=== PATIENT | male | born 1990 | race African-American/Black ===

== ENCOUNTER 2019-07-09 19:17 | Emergency (ER) | payer SELFPAY ==
[~2019-07-09] VITALS: Ht 175.3 cm; Wt 61.2 kg
[2019-07-09 19:28] VITALS: BP 101/57
[2019-07-09 19:45] LABS: BILIRUBIN,URINE NEGATIVE (NEG); CLARITY,URINE CLEAR; COLOR,URINE YELLOW; NITRITE,URINE NEGATIVE (NEG); PH,URINE 5.5; PROTEIN,URINE NEGATIVE (NEG-TRACE); UROBILINOGEN,URINE 0.2 mg/dL (0.2 mg/dL)
[2019-07-09 19:55] LABS: BACTERIA,URINE MODERATE /HPF (0-FEW); SQUAMOUS EPITHELIAL CELL,UR FEW /LPF; WBC,URINE TNTC /HPF (0-4)
[2019-07-09] MEDS ORDERED: AZITHROMYCIN 250 MG TABLET. PO ONE (20:15)
[2019-07-09] MEDS ORDERED: cefTRIAXone IM 250 MG VIAL IM ONE (20:15)
[2019-07-09] MEDS ORDERED: CEPH-264 PO (20:17)
--- NOTE | 2019-07-09 20:17 | PHYS DOC ---
Past Medical History Past Medical History: No Pertinent History Past Surgical History: No Surgical History Alcohol Use: None Drug Use: Marijuana Adult General Chief Complaint Chief Complaint: SEXUALLY TRANSMITTED DISEASE HPI HPI Patient is a 28 year old male who presents with had intercourse with a female that was positive for chlamydia. Patient denies any symptoms. Review of Systems Review of Systems : Exposure to STD. Denies dysuria or hematuria [] All other systems were reviewed and found to be within normal limits, except as documented in this note. Current Medications Current Medications Current Medications Medications (Trade) Dose Ordered Sig/Chris Start Time Stop Time Status Last Admin Dose Admin Azithromycin (Zithromax) 1,000 mg 1X ONCE 07/09/19 20:15 07/09/19 20:16 DC 07/09/19 20:15 1,000 MG Ceftriaxone Sodium (Rocephin Im) 250 mg 1X ONCE 07/09/19 20:15 07/09/19 20:16 DC 07/09/19 20:15 250 MG Allergies Allergies Allergies Coded Allergies Type Severity Reaction Last Updated Verified No Known Drug Allergies 07/09/19 No Physical Exam Physical Exam Constitutional: Well developed, well nourished, no acute distress, non-toxic appearance. [] Abdomen: Bowel sounds normal, soft, no tenderness, no masses, no pulsatile masses. [] Skin: Warm, dry, no erythema, no rash. [] Neurologic: Alert and oriented X 3, normal motor function, normal sensory function, no focal deficits noted. [] Psychologic: Affect normal, judgement normal, mood normal. Normal Physical exam[] Current Patient Data Vital Signs Vital Signs Date Time Temp Pulse Resp B/P (MAP) Pulse Ox O2 Delivery O2 Flow Rate FiO2 07/09/19 19:28 98.2 74 20 101/57 (72) 96 Room Air 98.2 Lab Values Laboratory Tests Test 07/09/19 19:23 Urine Collection Type Unknown Urine Color Yellow Urine Clarity Clear Urine pH 5.5 Urine Specific [place] >=1.030 Urine Protein Negative mg/dL (NEG-TRACE) Urine Glucose (UA) Negative mg/dL (NEG) Urine Ketones (Stick) Trace mg/dL (NEG) Urine Blood Negative (NEG) Urine Nitrite Negative (NEG) Urine Bilirubin Negative (NEG) Urine Urobilinogen Dipstick 0.2 mg/dL (0.2 mg/dL) Urine Leukocyte Esterase Moderate (NEG) Urine RBC 11-20 /HPF (0-2) Urine WBC Tntc /HPF (0-4) Urine Squamous Epithelial Cells Few /LPF Urine Bacteria Moderate /HPF (0-FEW) Urine Mucus Slight /LPF EKG EKG [] Radiology/Procedures Radiology/Procedures [] Course & Med Decision Making Course & Med Decision Making Abdomen soft and nontender. Patient denies dysuria symptoms, penile discharge, abdominal pain, nausea, vomiting, fever, back pain. There is no penile discharge or lesions to the penis seen. Patient denies any testicular pain. Patient is treated for sexual transmitted diseases. I sent off a urine for sexual transmitted diseases. Patient is reminded that he will be called in 48 hours only if he comes back positive. Patient is positive for urinary tract infection. Dragon Disclaimer Dragon Disclaimer This electronic medical record was generated, in whole or in part, using a voice recognition dictation system. Departure Departure Impression: Primary Impression: UTI (urinary tract infection) Additional Impression: Sexually transmissible disease Disposition: HOME, SELF-CARE Condition: STABLE Referrals: NO PCP (PCP) Patient Instructions: Sexually Transmitted Disease, Urinary Tract Infection Additional Instructions: Follow-up with primary care if needed. You will call you in 48 hours if you're results come back positive. Take medications with meals and as prescribed. Scripts Cephalexin (KEFLEX) 500 Mg Capsule 1 CAP PO BID for 7 Days, #14 CAP 0 Refills Prov: ELLE IBRAHIM APRN 07/09/19 Problem Qualifiers Primary Impression: UTI (urinary tract infection) Urinary tract infection type: site unspecified Hematuria presence: without hematuria Qualified Codes: N39.0 - Urinary tract infection, site not specified ELLE IBRAHIM BUSINESS DEAN Jul 09, 2019 20:17
== END 2019-07-09 20:42 | disposition home or self-care (01) ==
LOC: ER 19:17
DX: A64 Unspecified sexually transmitted disease (principal); N39.0 Urinary tract infection, site not specified
CPT/HCPCS: 81001; 87086; 87491; 87591; 96372; 99284; J0696; Q0144

== ENCOUNTER 2019-11-25 17:33 | Emergency (ER) | payer SELFPAY ==
[~2019-11-25] VITALS: Ht 175.3 cm; Wt 59.0 kg
[~2019-11-25 17:33] MED LIST: CEPH-264 PO
[2019-11-25 17:54] VITALS: BP 115/63
[2019-11-25] MEDS ORDERED: metroNIDAZOLE 500 MG TABLET PO ONE (18:00)
[2019-11-25] MEDS ORDERED: AZITHROMYCIN 250 MG TABLET. PO ONE (18:00)
[2019-11-25] MEDS ORDERED: cefTRIAXone IM 250 MG VIAL IM ONE (18:00)
[2019-11-25 18:07] LABS: BILIRUBIN,URINE NEGATIVE (NEG); CLARITY,URINE CLEAR; COLOR,URINE YELLOW; NITRITE,URINE NEGATIVE (NEG); PH,URINE 5.5; PROTEIN,URINE NEGATIVE (NEG-TRACE); UROBILINOGEN,URINE 0.2 mg/dL (0.2 mg/dL)
[2019-11-25 18:26] LABS: BACTERIA,URINE FEW /HPF (0-FEW); RBC,URINE RARE /HPF (0-2); SQUAMOUS EPITHELIAL CELL,UR MOD /LPF; WBC,URINE 20-40 /HPF (0-4)
--- NOTE | 2019-11-25 19:18 | PHYS DOC ---
Past Medical History Past Medical History: No Pertinent History Past Surgical History: No Surgical History Smoking Status: Current Every Day Smoker Alcohol Use: None Drug Use: Marijuana Adult General Chief Complaint Chief Complaint: SEXUALLY TRANSMITTED DISEASE HPI HPI Patient is a 29 year old AA male, accompanied by his significant other, who presents to the emergency department for treatment of trichomonas. Patient states that his girlfriend tested positive for trichomonas recently and that he has had pain with urination. He denies any abnormal discharge from his penis. Patient also denies any fever, cough, shortness of breath, back pain, hematuria, abnormal penile discharge, nausea, vomiting, diarrhea, or abdominal pain. He currently denies any pain. Review of Systems Review of Systems Complete ROS is negative unless otherwise noted in HPI. Current Medications Current Medications Current Medications Medications (Trade) Dose Ordered Sig/Chris Start Time Stop Time Status Last Admin Dose Admin Azithromycin (Zithromax) 1,000 mg 1X ONCE 11/25/19 18:00 11/25/19 18:06 DC 11/25/19 18:10 1,000 MG Ceftriaxone Sodium (Rocephin Im) 250 mg 1X ONCE 11/25/19 18:00 11/25/19 18:06 DC 11/25/19 18:11 250 MG Metronidazole (Flagyl) 2,000 mg 1X ONCE 11/25/19 18:00 11/25/19 18:06 DC 11/25/19 18:10 2,000 MG Allergies Allergies Allergies Coded Allergies Type Severity Reaction Last Updated Verified No Known Drug Allergies 07/09/19 No Physical Exam Physical Exam See Above Constitutional: Well developed, well nourished, no acute distress, non-toxic appearance. [] HENT: Normocephalic, atraumatic, bilateral external ears normal, nose normal. [] Eyes: PERRLA, EOMI, conjunctiva normal, no discharge. [] Neck: Normal range of motion, no stridor. [] Cardiovascular:Heart rate regular rhythm Lungs & Thorax: Respirations even and unlabored, no retractions, no respiratory distress Skin: Warm, dry, no erythema, no rash. [] Extremities: No cyanosis, ROM intact, no edema. [] Neurologic: Alert and oriented X 3, no focal deficits noted. [] Psychologic: Affect normal, judgement normal, mood normal. [] Current Patient Data Vital Signs Vital Signs Date Time Temp Pulse Resp B/P (MAP) Pulse Ox O2 Delivery O2 Flow Rate FiO2 11/25/19 17:54 98.0 72 16 115/63 (80) 97 Room Air 98.0 Lab Values Laboratory Tests Test 11/25/19 17:45 Urine Collection Type Unknown Urine Color Yellow Urine Clarity Clear Urine pH 5.5 Urine Specific [place] 1.025 Urine Protein Negative mg/dL (NEG-TRACE) Urine Glucose (UA) Negative mg/dL (NEG) Urine Ketones (Stick) Negative mg/dL (NEG) Urine Blood Negative (NEG) Urine Nitrite Negative (NEG) Urine Bilirubin Negative (NEG) Urine Urobilinogen Dipstick 0.2 mg/dL (0.2 mg/dL) Urine Leukocyte Esterase Moderate (NEG) Urine RBC Rare /HPF (0-2) Urine WBC 20-40 /HPF (0-4) Urine Squamous Epithelial Cells Mod /LPF Urine Bacteria Few /HPF (0-FEW) Urine Mucus Marked /LPF EKG EKG [] Radiology/Procedures Radiology/Procedures [] Course & Med Decision Making Course & Med Decision Making Pertinent Labs and Imaging studies reviewed. (See chart for details) Patient is a 29-year-old male who presented with concerns of a sexually transmitted infection. He was treated for trichomonas, and suspected gonorrhea and chlamydia. Patient was given 2 g of p.o. Flagyl, 1 g of p.o. Zithromax, and 250 mg IM Rocephin. Patient was encouraged to avoid intercourse for at least 1 week following treatment. Follow-up with the local health department for more comprehensive STD testing. [] Dragon Disclaimer Dragon Disclaimer This electronic medical record was generated, in whole or in part, using a voice recognition dictation system. Departure Departure Impression: Primary Impression: Contact with and (suspected) exposure to infections with a predominantly sexual mode of transmission Disposition: HOME, SELF-CARE Condition: STABLE Referrals: NO PCP (PCP) Patient Instructions: Sexually Transmitted Disease, [id number] Additional Instructions: Recommend that you go to your local health department for comprehensive sexually transmitted disease testing. You have been treated for a suspected trichomonas, gonorrhea and chlamydia. Avoid having intercourse until the results of gonorrhea and chlamydia testing are available, these results will not be available for 48 hours. If one or both of these tests is positive, you need to refrain from intercourse for approximately 1 week following the treatment of any current partners. Follow-up with your primary care doctor if symptoms persist, return to ER symptoms worsen. SOCORRO OSEGUERA APRN Nov 25, 2019 19:18
== END 2019-11-25 19:34 | disposition home or self-care (01) ==
LOC: ER 17:33
DX: R30.9 Painful micturition, unspecified (principal); Z20.2 Contact with and (suspected) exposure to infections with a predominantly sexual mode of transmission; F12.90 Cannabis use, unspecified, uncomplicated; F17.200 Nicotine dependence, unspecified, uncomplicated; Z79.899 Other long term (current) drug therapy
CPT/HCPCS: 81001; 87491; 87591; 96372; 99283; J0696